=== PATIENT | female | born 1940 | race African-American/Black ===

== ENCOUNTER 2024-05-15 20:01 | Inpatient (IN) | payer MEDICARE ==
[~2024-05-15] VITALS: Ht 165.1 cm; Wt 79.4 kg
[2024-05-15 22:39] LABS: BASOPHILS # (AUTO) 0.1 K/UL (0.0-0.2); BASOPHILS % (AUTO) 0.9 % (0.0-2.0); EOSINOPHILS # (AUTO) 0.1 K/uL (0.0-0.7); EOSINOPHILS % (AUTO) 0.7 % (0.0-7.0); HEMATOCRIT 42.4 % (31.2-41.9); LYMPHOCYTES # (AUTO) 1.4 K/uL (0.8-4.8); LYMPHOCYTES % (AUTO) 19.1 % (20.5-51.5); MEAN CORPUSCULAR HEMOGLOBIN 33.3 uug (24.7-32.8); MEAN CORPUSCULAR HGB CONC 33 g/dL (32.3-35.6); MEAN CORPUSCULAR VOLUME 100.8 fL (75.5-95.3); MONOCYTES # (AUTO) 0.7 K/uL (0.1-1.30); MONOCYTES % (AUTO) 9.1 % (0.0-11.0); NEUTROPHILS # (AUTO) 5.1 K/uL (1.8-8.9); NEUTROPHILS % (AUTO) 70.2 % (38.5-71.5); PLATELET COUNT (AUTO) 224 K/uL (179-408); RED BLOOD CELL COUNT(AUTO) 4.21 MIL/uL (3.63-4.92); RED CELL DISTRIBUTION WIDTH 14.8 % (12.3-17.7); WHITE BLOOD COUNT (AUTO) 7.2 K/uL (3.8-11.8)
[2024-05-15 23:13] LABS: DIFFERENTIAL COMMENT 1
[2024-05-15 23:26] LABS: ALANINE AMINOTRANSFERASE 41 U/L (14-59); ALBUMIN 3.2 g/dL (3.4-5.0); ALKALINE PHOSPHATASE 136 U/L (50-136); ASPARTATE AMINOTRANSFERASE 35 U/L (15-37); BILIRUBIN,DIRECT 0.3 mg/dL (0.0-0.2); CALCIUM 9.4 mg/dL (8.5-10.1); CARBON DIOXIDE 29 mmol/L (21-32); CHLORIDE 108 mmol/L (98-107); CREATININE 0.9 mg/dL (0.6-1.3); GLUCOSE 112 mg/dL (74-106); NT-PRO BNP 3133 pg/mL (0-125); POTASSIUM 3.1 mmol/L (3.5-5.1); SODIUM SERUM 147 mmol/L (136-145); TOTAL PROTEIN, SERUM 6.7 g/dL (6.4-8.2); UREA NITROGEN, BLOOD 8 mg/dL (7-18)
[2024-05-15] MEDS ORDERED: ASPIRIN 81 MG TAB.CHEW ONE (23:39)
[2024-05-15] MEDS: ASPIRIN 81 MG TAB.CHEW PO ONE (23:42)
[2024-05-16] MEDS ORDERED: POTASSIUM BICARBONATE/CIT AC 25 MEQ TABLET.EFF ONE (00:14)
[2024-05-16] MEDS: POTASSIUM BICARBONATE/CIT AC 25 MEQ TABLET.EFF PO ONE (00:19)
[2024-05-16 00:52] LABS: MAGNESIUM 2.4 mg/dL (1.8-2.4)
[2024-05-16] MEDS ORDERED: MAGNESIUM HYDROXIDE 30 ML LIQUID UDC PO PRN (01:00)
[2024-05-16] MEDS ORDERED: REMEDY ESSENTIAL ZINC PASTE 113 GM TP PRN (01:00)
[2024-05-16] MEDS ORDERED: ENOXAPARIN SODIUM 80 MG/0.8 ML DISP.SYRIN SQ SCH (01:12)
[2024-05-16] MEDS ORDERED: MAGNESIUM SULFATE/D5W 200 ML ONE (01:15)
[2024-05-16] MEDS: MAGNESIUM SULFATE/D5W 100 ML IV ONE (01:20)
[2024-05-16] MEDS ORDERED: IV D5W 1000ML 1,000 ML IV ONE (01:30)
[2024-05-16] MEDS ORDERED: BENA40TA67 PO (05:29)
[2024-05-16] MEDS ORDERED: AMIO200T5 PO (05:29)
[2024-05-16] MEDS ORDERED: CHLO25TA2 PO (05:29)
[2024-05-16] MEDS ORDERED: FURO20TA4 PO (05:29)
[2024-05-16] MEDS ORDERED: CARV12.5 PO (05:29)
[2024-05-16] MEDS ORDERED: ALLO100T PO (05:29)
[2024-05-16] MEDS ORDERED: APIX5TAB PO (05:29)
[2024-05-16] MEDS ORDERED: PANT40TA2 PO (05:29)
[2024-05-16] MEDS ORDERED: SUCR1TAB31 PO (05:29)
[2024-05-16] MEDS ORDERED: BUSP10TA3 PO (05:29)
[2024-05-16 06:45] VITALS: BP 157/83; TEMP 98.2; O2SAT 96
[2024-05-16] MEDS: ENOXAPARIN SODIUM 80 MG/0.8 ML DISP.SYRIN SQ SCH (06:58)
[2024-05-16 08:00] VITALS: BP 155/80; TEMP 97.8; O2SAT 96
[2024-05-16] MEDS: FUROSEMIDE 20 MG/2 ML VIAL IV SCH (08:41)
[2024-05-16 10:03] LABS: BASOPHILS # (AUTO) 0.1 K/UL (0.0-0.2); BASOPHILS % (AUTO) 0.8 % (0.0-2.0); EOSINOPHILS # (AUTO) 0.1 K/uL (0.0-0.7); EOSINOPHILS % (AUTO) 0.9 % (0.0-7.0); HEMATOCRIT 43.1 % (31.2-41.9); HEMOGLOBIN 14.3 g/dL (10.9-14.3); LYMPHOCYTES # (AUTO) 1.2 K/uL (0.8-4.8); LYMPHOCYTES % (AUTO) 15.3 % (20.5-51.5); MEAN CORPUSCULAR HEMOGLOBIN 33.6 uug (24.7-32.8); MEAN CORPUSCULAR HGB CONC 33 g/dL (32.3-35.6); MEAN CORPUSCULAR VOLUME 101.6 fL (75.5-95.3); MONOCYTES # (AUTO) 0.7 K/uL (0.1-1.30); MONOCYTES % (AUTO) 8.6 % (0.0-11.0); NEUTROPHILS # (AUTO) 5.7 K/uL (1.8-8.9); NEUTROPHILS % (AUTO) 74.4 % (38.5-71.5); PLATELET COUNT (AUTO) 217 K/uL (179-408); RED BLOOD CELL COUNT(AUTO) 4.24 MIL/uL (3.63-4.92); RED CELL DISTRIBUTION WIDTH 14.9 % (12.3-17.7); WHITE BLOOD COUNT (AUTO) 7.6 K/uL (3.8-11.8)
[2024-05-16 10:38] LABS: CALCIUM 9.5 mg/dL (8.5-10.1); CARBON DIOXIDE 31 mmol/L (21-32); CHLORIDE 108 mmol/L (98-107); CREATININE 0.9 mg/dL (0.6-1.3); GLUCOSE 133 mg/dL (74-106); MAGNESIUM 2.8 mg/dL (1.8-2.4); NT-PRO BNP 3453 pg/mL (0-125); PHOSPHOROUS 2.5 mg/dL (2.5-4.9); POTASSIUM 3.6 mmol/L (3.5-5.1); SODIUM SERUM 147 mmol/L (136-145); UREA NITROGEN, BLOOD 9 mg/dL (7-18)
[2024-05-16 10:44] LABS: DIFFERENTIAL COMMENT 1
[2024-05-16 15:35] VITALS: BP 157/84; TEMP 98.8; O2SAT 96
[2024-05-16] MEDS: SUCRALFATE 1 G TABLET PO SCH (17:24)
[2024-05-16] MEDS: busPIRone 10 MG TABLET PO SCH (17:24)
[2024-05-16] MEDS: ALLOPURINOL 100 MG TABLET PO SCH (17:25)
[2024-05-16] MEDS: CARVEDILOL 12.5 MG TABLET PO SCH (17:25)
[2024-05-16] MEDS: APIXABAN 5 MG TABLET PO SCH (17:26)
[2024-05-16] MEDS: ACETAMINOPHEN 325 MG TABLET PO PRN (17:58)
[2024-05-16 20:00] VITALS: BP 152/71; TEMP 98.1; O2SAT 98
[2024-05-16] MEDS ORDERED: FUROSEMIDE 20 MG/2 ML VIAL IV SCH (21:00)
[2024-05-16] MEDS: FUROSEMIDE 40 MG/4 ML VIAL IVP SCH (21:10)
[2024-05-17] VITALS (7 sets, daily range): BP systolic 142–152; BP diastolic 71–82; TEMP 97.8–98.6; O2SAT 94–100
[2024-05-17] MEDS: PANTOPRAZOLE SODIUM 40 MG TABLET.DR PO SCH (06:40)
[2024-05-17 07:10] LABS: BASOPHILS # (AUTO) 0.1 K/UL (0.0-0.2); BASOPHILS % (AUTO) 0.7 % (0.0-2.0); EOSINOPHILS # (AUTO) 0.1 K/uL (0.0-0.7); EOSINOPHILS % (AUTO) 0.9 % (0.0-7.0); HEMATOCRIT 40.5 % (31.2-41.9); HEMOGLOBIN 13.6 g/dL (10.9-14.3); LYMPHOCYTES # (AUTO) 1.1 K/uL (0.8-4.8); LYMPHOCYTES % (AUTO) 14.3 % (20.5-51.5); MEAN CORPUSCULAR HEMOGLOBIN 33.8 uug (24.7-32.8); MEAN CORPUSCULAR HGB CONC 34 g/dL (32.3-35.6); MEAN CORPUSCULAR VOLUME 100.6 fL (75.5-95.3); MONOCYTES # (AUTO) 0.9 K/uL (0.1-1.30); MONOCYTES % (AUTO) 11.3 % (0.0-11.0); NEUTROPHILS # (AUTO) 5.6 K/uL (1.8-8.9); NEUTROPHILS % (AUTO) 72.8 % (38.5-71.5); PLATELET COUNT (AUTO) 234 K/uL (179-408); RED BLOOD CELL COUNT(AUTO) 4.03 MIL/uL (3.63-4.92); RED CELL DISTRIBUTION WIDTH 14.7 % (12.3-17.7); WHITE BLOOD COUNT (AUTO) 7.7 K/uL (3.8-11.8)
[2024-05-17 07:19] LABS: DIFFERENTIAL COMMENT 1
[2024-05-17 07:44] LABS: CALCIUM 8.9 mg/dL (8.5-10.1); CARBON DIOXIDE 32 mmol/L (21-32); CHLORIDE 105 mmol/L (98-107); CREATININE 0.8 mg/dL (0.6-1.3); GLUCOSE 96 mg/dL (74-106); MAGNESIUM 2.1 mg/dL (1.8-2.4); PHOSPHOROUS 2.5 mg/dL (2.5-4.9); SODIUM SERUM 143 mmol/L (136-145); UREA NITROGEN, BLOOD 8 mg/dL (7-18)
[2024-05-17 08:03] LABS: POTASSIUM 2.8 mmol/L (3.5-5.1)
[2024-05-17] MEDS: BENAZEPRIL HCL 20 MG TABLET PO SCH (09:23)
[2024-05-17] MEDS: AMIODARONE HCL 200 MG TABLET PO SCH (09:24)
[2024-05-17] MEDS: POTASSIUM CHLORIDE 10 MEQ TAB.PRT.SR PO SCH (09:29)
[2024-05-17] MEDS: CHLORTHALIDONE 25 MG TABLET PO SCH (09:29)
[2024-05-17] MEDS: POTASSIUM CHLORIDE 20 MEQ TAB.PRT.SR PO SCH (11:48)
[2024-05-17] MEDS: GUAIFENESIN LA 600 MG TABLET.SA PO SCH (11:48)
[2024-05-18 07:24] LABS: BASOPHILS # (AUTO) 0.1 K/UL (0.0-0.2); EOSINOPHILS # (AUTO) 0.1 K/uL (0.0-0.7); EOSINOPHILS % (AUTO) 1.9 % (0.0-7.0); HEMATOCRIT 41.7 % (31.2-41.9); HEMOGLOBIN 14.1 g/dL (10.9-14.3); LYMPHOCYTES # (AUTO) 1.4 K/uL (0.8-4.8); LYMPHOCYTES % (AUTO) 20.4 % (20.5-51.5); MEAN CORPUSCULAR HEMOGLOBIN 33.7 uug (24.7-32.8); MEAN CORPUSCULAR HGB CONC 34 g/dL (32.3-35.6); MEAN CORPUSCULAR VOLUME 99.8 fL (75.5-95.3); MONOCYTES # (AUTO) 0.9 K/uL (0.1-1.30); NEUTROPHILS # (AUTO) 4.5 K/uL (1.8-8.9); NEUTROPHILS % (AUTO) 63.7 % (38.5-71.5); PLATELET COUNT (AUTO) 222 K/uL (179-408); RED BLOOD CELL COUNT(AUTO) 4.18 MIL/uL (3.63-4.92); RED CELL DISTRIBUTION WIDTH 14.7 % (12.3-17.7); WHITE BLOOD COUNT (AUTO) 7.1 K/uL (3.8-11.8)
[2024-05-18 07:25] VITALS: BP 140/68; TEMP 97.9; O2SAT 99
[2024-05-18 07:39] LABS: CALCIUM 9.8 mg/dL (8.5-10.1); CARBON DIOXIDE 34 mmol/L (21-32); CHLORIDE 101 mmol/L (98-107); CREATININE 0.9 mg/dL (0.6-1.3); GLUCOSE 99 mg/dL (74-106); POTASSIUM 3.5 mmol/L (3.5-5.1); SODIUM SERUM 139 mmol/L (136-145); UREA NITROGEN, BLOOD 14 mg/dL (7-18)
[2024-05-18 07:44] LABS: DIFFERENTIAL COMMENT 1
[2024-05-18 11:18] VITALS: BP 131/50; TEMP 97.3; O2SAT 99
[2024-05-18 15:26] VITALS: BP 132/67; TEMP 97.8; O2SAT 99
[2024-05-18 19:32] VITALS: BP 125/69; TEMP 97.9; O2SAT 100
[2024-05-19 00:31] VITALS: BP 114/62; TEMP 97.5; O2SAT 96
[2024-05-19 06:31] VITALS: BP 128/67; TEMP 97.7; O2SAT 98
[2024-05-19 07:10] LABS: BASOPHILS # (AUTO) 0.1 K/UL (0.0-0.2); BASOPHILS % (AUTO) 0.8 % (0.0-2.0); EOSINOPHILS # (AUTO) 0.1 K/uL (0.0-0.7); EOSINOPHILS % (AUTO) 1.7 % (0.0-7.0); HEMATOCRIT 45.2 % (31.2-41.9); HEMOGLOBIN 15.4 g/dL (10.9-14.3); LYMPHOCYTES # (AUTO) 1.6 K/uL (0.8-4.8); MEAN CORPUSCULAR HEMOGLOBIN 34.2 uug (24.7-32.8); MEAN CORPUSCULAR HGB CONC 34 g/dL (32.3-35.6); MEAN CORPUSCULAR VOLUME 100.7 fL (75.5-95.3); MONOCYTES % (AUTO) 12.8 % (0.0-11.0); NEUTROPHILS % (AUTO) 64.7 % (38.5-71.5); PLATELET COUNT (AUTO) 254 K/uL (179-408); RED BLOOD CELL COUNT(AUTO) 4.49 MIL/uL (3.63-4.92); RED CELL DISTRIBUTION WIDTH 14.7 % (12.3-17.7); WHITE BLOOD COUNT (AUTO) 7.7 K/uL (3.8-11.8)
[2024-05-19 07:12] LABS: DIFFERENTIAL COMMENT 1
[2024-05-19 07:20] LABS: CALCIUM 10.6 mg/dL (8.5-10.1); CARBON DIOXIDE 36 mmol/L (21-32); CHLORIDE 100 mmol/L (98-107); CREATININE 1.1 mg/dL (0.6-1.3); GLUCOSE 116 mg/dL (74-106); POTASSIUM 3.6 mmol/L (3.5-5.1); SODIUM SERUM 142 mmol/L (136-145); UREA NITROGEN, BLOOD 22 mg/dL (7-18)
[2024-05-19 11:46] VITALS: BP 97/47; TEMP 97.9; O2SAT 97
[2024-05-19] MEDS: AMOXICILLIN-CLAVUL 875-125MG TABLET PO SCH (14:27)
[2024-05-19 15:28] VITALS: BP 125/62; TEMP 97.9; O2SAT 97
[2024-05-19 20:00] VITALS: TEMP 98
[2024-05-19 20:30] VITALS: BP 117/56
[2024-05-19] MEDS: IV NORMAL SALINE 250 ML IV ONE (20:33)
[2024-05-20 05:59] VITALS: O2SAT 98
[2024-05-20 06:38] LABS: BASOPHILS % (AUTO) 0.6 % (0.0-2.0); EOSINOPHILS # (AUTO) 0.1 K/uL (0.0-0.7); EOSINOPHILS % (AUTO) 1.1 % (0.0-7.0); HEMATOCRIT 46.3 % (31.2-41.9); HEMOGLOBIN 15.7 g/dL (10.9-14.3); LYMPHOCYTES # (AUTO) 1.7 K/uL (0.8-4.8); LYMPHOCYTES % (AUTO) 20.9 % (20.5-51.5); MEAN CORPUSCULAR HEMOGLOBIN 34.2 uug (24.7-32.8); MEAN CORPUSCULAR HGB CONC 34 g/dL (32.3-35.6); MEAN CORPUSCULAR VOLUME 100.6 fL (75.5-95.3); MONOCYTES % (AUTO) 12.2 % (0.0-11.0); NEUTROPHILS # (AUTO) 5.3 K/uL (1.8-8.9); NEUTROPHILS % (AUTO) 65.2 % (38.5-71.5); PLATELET COUNT (AUTO) 254 K/uL (179-408); RED CELL DISTRIBUTION WIDTH 14.5 % (12.3-17.7); WHITE BLOOD COUNT (AUTO) 8.1 K/uL (3.8-11.8)
[2024-05-20 06:41] LABS: DIFFERENTIAL COMMENT 1
[2024-05-20 06:49] LABS: CALCIUM 9.9 mg/dL (8.5-10.1); CARBON DIOXIDE 34 mmol/L (21-32); CHLORIDE 92 mmol/L (98-107); GLUCOSE 123 mg/dL (74-106); POTASSIUM 3.2 mmol/L (3.5-5.1); SODIUM SERUM 135 mmol/L (136-145); UREA NITROGEN, BLOOD 29 mg/dL (7-18)
[2024-05-20] MEDS: POTASSIUM CHLORIDE 20 MEQ TAB.PRT.SR PO ONE (11:19)
[2024-05-20 16:00] VITALS: BP 112/56; TEMP 97.8; O2SAT 97
[2024-05-20 18:22] VITALS: O2SAT 94
[2024-05-20 19:00] VITALS: BP 121/61; TEMP 97.6; O2SAT 96
[2024-05-21] VITALS (8 sets, daily range): BP systolic 95–114; BP diastolic 40–53; TEMP 97.6–98.1; O2SAT 95–100
[2024-05-21 06:10] LABS: BASOPHILS # (AUTO) 0.1 K/UL (0.0-0.2); BASOPHILS % (AUTO) 0.9 % (0.0-2.0); EOSINOPHILS # (AUTO) 0.1 K/uL (0.0-0.7); EOSINOPHILS % (AUTO) 1.6 % (0.0-7.0); HEMATOCRIT 49.6 % (31.2-41.9); HEMOGLOBIN 16.8 g/dL (10.9-14.3); LYMPHOCYTES # (AUTO) 1.5 K/uL (0.8-4.8); LYMPHOCYTES % (AUTO) 19.4 % (20.5-51.5); MEAN CORPUSCULAR HEMOGLOBIN 33.7 uug (24.7-32.8); MEAN CORPUSCULAR HGB CONC 34 g/dL (32.3-35.6); MEAN CORPUSCULAR VOLUME 99.6 fL (75.5-95.3); MONOCYTES # (AUTO) 1.1 K/uL (0.1-1.30); MONOCYTES % (AUTO) 13.7 % (0.0-11.0); NEUTROPHILS % (AUTO) 64.4 % (38.5-71.5); PLATELET COUNT (AUTO) 239 K/uL (179-408); RED BLOOD CELL COUNT(AUTO) 4.98 MIL/uL (3.63-4.92); RED CELL DISTRIBUTION WIDTH 14.3 % (12.3-17.7); WHITE BLOOD COUNT (AUTO) 7.8 K/uL (3.8-11.8)
[2024-05-21 06:20] LABS: CALCIUM 10.1 mg/dL (8.5-10.1); CARBON DIOXIDE 35 mmol/L (21-32); CHLORIDE 94 mmol/L (98-107); GLUCOSE 122 mg/dL (74-106); POTASSIUM 3.5 mmol/L (3.5-5.1); SODIUM SERUM 133 mmol/L (136-145); UREA NITROGEN, BLOOD 31 mg/dL (7-18)
[2024-05-21 06:25] LABS: DIFFERENTIAL COMMENT 1
[2024-05-21] MEDS: IPRATROPIUM BROMIDE 0.5 MG/2.5 ML NEBU NEB PRN (14:55)
[2024-05-21] MEDS: ALBUTEROL SULFATE 1.25 MG/3 ML NEBU NEB PRN (14:55)
[2024-05-21] MEDS: MIRALAX 17 GM POWD.PACK PO SCH (18:49)
[2024-05-21] MEDS: DOCUSATE SODIUM 100 MG CAPSULE PO SCH (21:13)
[2024-05-22 05:27] VITALS: O2SAT 98
[2024-05-22 06:10] VITALS: BP 117/64; TEMP 98; O2SAT 96
[2024-05-22 07:10] LABS: BASOPHILS # (AUTO) 0.1 K/UL (0.0-0.2); BASOPHILS % (AUTO) 0.8 % (0.0-2.0); EOSINOPHILS # (AUTO) 0.1 K/uL (0.0-0.7); EOSINOPHILS % (AUTO) 1.2 % (0.0-7.0); HEMOGLOBIN 16.5 g/dL (10.9-14.3); LYMPHOCYTES # (AUTO) 1.7 K/uL (0.8-4.8); LYMPHOCYTES % (AUTO) 20.9 % (20.5-51.5); MEAN CORPUSCULAR HEMOGLOBIN 34.5 uug (24.7-32.8); MEAN CORPUSCULAR HGB CONC 35 g/dL (32.3-35.6); MEAN CORPUSCULAR VOLUME 100.1 fL (75.5-95.3); MONOCYTES % (AUTO) 12.3 % (0.0-11.0); NEUTROPHILS # (AUTO) 5.3 K/uL (1.8-8.9); NEUTROPHILS % (AUTO) 64.8 % (38.5-71.5); PLATELET COUNT (AUTO) 256 K/uL (179-408); RED BLOOD CELL COUNT(AUTO) 4.79 MIL/uL (3.63-4.92); RED CELL DISTRIBUTION WIDTH 14.3 % (12.3-17.7); WHITE BLOOD COUNT (AUTO) 8.1 K/uL (3.8-11.8)
[2024-05-22 07:46] LABS: CALCIUM 10.1 mg/dL (8.5-10.1); CARBON DIOXIDE 33 mmol/L (21-32); CHLORIDE 93 mmol/L (98-107); GLUCOSE 121 mg/dL (74-106); MAGNESIUM 2.6 mg/dL (1.8-2.4); NT-PRO BNP 163 pg/mL (0-125); POTASSIUM 3.4 mmol/L (3.5-5.1); SODIUM SERUM 134 mmol/L (136-145); UREA NITROGEN, BLOOD 33 mg/dL (7-18)
[2024-05-22 07:56] LABS: DIFFERENTIAL COMMENT 1
[2024-05-22] MEDS ORDERED: AMOX-430 PO (11:15)
[2024-05-22 11:20] VITALS: BP 90/45; TEMP 98.1; O2SAT 100
[2024-05-22] MEDS: POTASSIUM CHLORIDE 20 MEQ TAB.PRT.SR PO ONE (11:46)
[2024-05-22 14:00] VITALS: BP 105/52; TEMP 98; O2SAT 99
== END 2024-05-22 15:30 | disposition home health service (06) | DRG 280 ==
LOC: ER 20:01 → EDSEX 20:01 → TELE3 05-16 03:00 → MEDSURG3 05-19 03:10
PROVIDERS: ADMIT Nurse Practitioner Family; ATTEND Nurse Practitioner Acute Care
DX: I11.0 Hypertensive heart disease with heart failure (principal); I50.33 Acute on chronic diastolic (congestive) heart failure; I21.A1 Myocardial infarction type 2; J96.01 Acute respiratory failure with hypoxia; J15.69 Pneumonia due to other Gram-negative bacteria; J44.0 Chronic obstructive pulmonary disease with (acute) lower respiratory infection; E87.1 Hypo-osmolality and hyponatremia; E87.0 Hyperosmolality and hypernatremia; I16.0 Hypertensive urgency; I25.10 Atherosclerotic heart disease of native coronary artery without angina pectoris; Z95.5 Presence of coronary angioplasty implant and graft; Z95.0 Presence of cardiac pacemaker; Z79.01 Long term (current) use of anticoagulants; Z88.1 Allergy status to other antibiotic agents; Z96.651 Presence of right artificial knee joint; Z86.73 Personal history of transient ischemic attack (TIA), and cerebral infarction without residual deficits; M10.9 Gout, unspecified; M15.9 Polyosteoarthritis, unspecified; E78.5 Hyperlipidemia, unspecified; I48.0 Paroxysmal atrial fibrillation; J20.9 Acute bronchitis, unspecified; E87.6 Hypokalemia; Z72.0 Tobacco use
CPT/HCPCS: 36415; 71045; 83735; 84100; 84484; 85025; 93307; 94664; G0378; J1650; J1940; J3475; J3590; J8499